=== PATIENT | female | born 1965 | race Caucasian/White ===

== ENCOUNTER → 2020-06-27 13:30 | Outpatient (CLI) | payer BC, SELFPAY ==
--- NOTE | ~2020-06-27 | MR_ITS ---
EXAMINATION: MR abdomen wo/w con, MR pelvis wo/w con DATE: 06/27/2020 15:00 INDICATION: Intra-abdominal and pelvic swelling, mass and lump. Uterine mass. TECHNIQUE: 1. Magnetic resonance imaging (MRI) of the abdomen was performed without and with 15 mL Multihance in travenous contrast. Sequences included coronal T2-weighted SS-FSE, coronal and axial FS 2D-FIESTA, a xial STIR FSE, axial T2-weighted SS-FSE, axial T2-weighted FS SS-FSE, axial diffusion-weighted SE, ax ial dual-echo T1-weighted FSPGR, and axial and coronal T1-weighted LAVA. Postcontrast axial and coron al T1-weighted LAVA images were obtained. 2. MRI of the pelvis was performed without and with the same 15 mL Multihance intravenous contrast oneil nena. Fullfield sequences of the pelvis included axial and coronal T2-weighted SS FSE, coronal 2D FIES TA, axial T1-weighted FSPGR, axial dual-echo T1-weighted FSPGR and axial T1 weighted LAVA. Small fie ld of view sequences included axial, sagittal and coronal T2-weighted FSE centered on the uterus and adnexa. Postcontrast sequences included a time course axial T1-weighted LAVA with fullfield of view of the pelvis. COMPARISON: None. FINDINGS: Abdomen: Heart size is normal. No pericardial or pleural effusion. A couple subcentimeter T2 hyperintense hepa tic cysts. Gallbladder, spleen, pancreas, left kidney and bilateral adrenal glands are normal. Mild r ight hydroureteronephrosis which extends to where the mid ureter appears compressed between the right psoas muscle and a large uterine mass which will be further detailed below. No bowel obstruction. Mi ld sigmoid diverticulosis without adjacent inflammatory changes to suggest diverticulitis. Normal aurelio endix. No pathologically enlarged abdominal lymphadenopathy. Normal bone marrow signal throughout. Pelvis: 16.7 x 8.8 x 13.8 cm subserosal mass arising from the uterine fundus consistent with a uterine fibroi d. Distended bladder is normal. Small amount of likely physiologic free fluid in the pelvis. A few love bcentimeter cysts/follicles at the bilateral ovaries the left ovary positioned along the anterior to anteroinferior margin of the uterine mass in the right ovary position posterior to the uterine body. Minimal likely physiologic free fluid in the pelvis. No pathologically enlarged pelvic or inguinal ly mphadenopathy. 5 mm retrolisthesis L5 on S1 with severe disc height loss at this level. IMPRESSION: 1. 16.7 x 8.8 x 13.8 cm subserosal mass at the uterine fundus most likely representing a large uterin e fibroid. 2. Mild right hydroureteronephrosis which appears to result from compression of the mid right ureter between the mass and the right psoas muscle. 3. Mild sigmoid diverticulosis. Reviewed, dictated and finalized at location A. IMPRESSION: 1. 16.7 x 8.8 x 13.8 cm subserosal mass at the uterine fundus most likely repre senting a large uterine fibroid. 2. Mild right hydroureteronephrosis which appears to result from compression of the mid right ureter between the mass and the right psoas muscle. 3. Mild sigmoid diverticulosis.
[2020-06-27 14:01] LABS: Estimated Glomerular Filt Rate > 60
== END ==
PROVIDERS: Visit Provider Obstetrics & Gynecology Gynecologic Oncology
DX: R19.00 Intra-abdominal and pelvic swelling, mass and lump, unspecified site (principal); D25.9 Leiomyoma of uterus, unspecified; K57.30 Diverticulosis of large intestine without perforation or abscess without bleeding
CPT/HCPCS: 72197; 74183; A9577

== ENCOUNTER 2022-08-31 19:48 | Emergency (ER) | payer OTHER, SELFPAY ==
--- NOTE | 2022-08-31 19:50 | ED.GENADULT ---
HPI - General Adult General Chief complaint: Eye Problems Stated complaint: lt eye irritation Time Seen by Provider: 08/31/22 19:50 Source: patient Mode of arrival: ambulatory Limitations: no limitations History of Present Illness HPI narrative: 57-year-old female presents with complaint of pain, burning, photophobia, clear drainage from left eye starting this afternoon. Patient reports that she did a tele doc visit and they said all call something in for you. Patient states she called pharmacy to see what was called in and was told that it was an allergy eye drop. Patient is concerned that she has an eye infection and needs an antibiotic eye drop. Patient does wear contacts. Uses daily contacts but worse for 3 days. States that she sleeps in her contacts. Denies eye injury. All systems reviewed and negative except as noted above. Related Data Allergies Allergy/AdvReac Type Severity Reaction Status Date / Time No Known Allergies Allergy Verified 08/31/22 19:59 Review of Systems Review of Systems: CONSTITUTIONAL: Denies fever, chills, or sweats. EYES: Denies visual changes . Reports left eye redness, photophobia, clear drainage. ENT: Denies rhinorrhea, congestion, sore throat, or otalgia. CARDIOVASCULAR: Denies chest pain, palpitations, or edema. RESPIRATORY: Denies cough or dyspnea. GASTROINTESTINAL: Denies abdominal pain, nausea, vomiting, or diarrhea. GENITOURINARY: Denies dysuria or hematuria. SKIN: Denies rash or itching. MUSCULOSKELETAL: Denies back pain, joint pain, or myalgia. NEUROLOGIC: Denies headache, numbness, or weakness. PSYCHIATRIC: Denies anxiety or depression. All other systems reviewed are negative, except as documented in HPI. PMFSH Comments At time of signature, agree with nursing past medical, surgical, social and family history. There is no relevant family history pertinent to the presenting complaint. Exam Narrative: GENERAL: This is a well-nourished, well-developed patient, in no apparent distress. HEAD: normocephalic, atraumatic. EYES: PERRL. Sclera of left eye is erythematous. Topical anesthetic was instilled with good anesthesia using 1gtt of opth anesthetic agent (tetracaine). Fluorescein stain of the L eye was performed. three small corneal abrasions noted. NO FB. Upper lid was everted and no FB or lesions were noted. Normal saline irrigation eye solution was performed and the patient tolerated the procedure well, no adverse reaction or complications. EARS: External ears normal NOSE: External nose normal NECK: Neck supple, non-tender without lymphadenopathy, masses or thyromegaly. CARDIOVASCULAR: Regular rate and rhythm without murmurs, gallops, or rubs. RESPIRATORY: Clear to auscultation. Breath sounds equal bilaterally. No wheezes, rales, or rhonchi. SKIN: warm, Dry, intact with no suspicious lesions or rash, good texture and turgor. NEURO: awake, alert, and oriented to person, place and time. There were no obvious focal neurologic abnormalities. EXTREMITIES: No joint tenderness, effusion, or edema noted. Course Course Level of Care: Express Care Visit Vital Signs Vital signs: Vital Signs Temperature 36.3 C L 08/31/22 20:01 Pulse Rate 75 08/31/22 20:01 Respiratory Rate 16 08/31/22 20:01 Blood Pressure 149/84 H 08/31/22 20:01 Pulse Oximetry 100 08/31/22 20:01 Oxygen Delivery Room Air 08/31/22 20:01 Temperature 36.3 C L 08/31/22 20:01 Pulse Rate 75 08/31/22 20:01 Respiratory Rate 16 08/31/22 20:01 Blood Pressure 149/84 H 08/31/22 20:01 Pulse Oximetry 100 08/31/22 20:01 Oxygen Delivery Room Air 08/31/22 20:01 Reviewed Medical Decision Making MDM Narrative Medical decision making narrative: Patient is aware of diagnosis, understands and agrees to treatment plan. Anticipatory guidance given. Patient agrees to follow-up as directed and is aware of reasons to seek care at the emergency department. Portions of
[2022-08-31 20:01] VITALS: BP 149/84; PULSE 75; RESP 16; TEMP 36.3; O2SAT 100
== END 2022-08-31 20:13 | disposition home or self-care (01) ==
PROVIDERS: Emergency Provider Nurse Practitioner Family
DX: S05.02XA Injury of conjunctiva and corneal abrasion without foreign body, left eye, initial encounter (principal); T14.90XA Injury, unspecified, initial encounter
CPT/HCPCS: 99213; A9270; G0463

== ENCOUNTER 2023-06-06 15:59 | Outpatient (CLI) | payer OTHER, SELFPAY ==
--- NOTE | ~2023-06-06 | MR_ITS ---
EXAMINATION: MR knee RT wo con DATE: 06/06/2023 16:26 INDICATION: Right knee pain TECHNIQUE: Magnetic resonance imaging (MRI) of the right knee was performed without intravenous contr ast. Sequences included coronal PD-weighted FSE, coronal PD-weighted FS FSE, sagittal T2-weighted FS E, sagittal PD-weighted FS FSE and axial PD weighted fat saturated FSE. COMPARISON: None. FINDINGS: Medial compartment: Partial-thickness radial tear extending across the inferior aspect of the lateral side of the posteri or horn of the medial meniscus there is mild medial extrusion of the meniscal body. Partial-thickness chondral ulceration and smaller regions of deep chondral fissuring at the anterior weightbearing med ial femoral condyle. Cartilage along the medial tibial plateau is relatively preserved. Lateral compartment: Lateral meniscus is normal. There is mild shallow chondral surface irregularity along the anterior we ightbearing lateral femoral condyle. Small deep chondral ulceration with underlying mild cortical irr egularity and edema-like signal change at the central weightbearing lateral femoral condyle. Small r egion of shallow chondral ulceration along the posterior medial margin of the lateral tibial plateau. Patellofemoral compartment: Extensive full/near full-thickness chondral ulceration along the clavicle two thirds of the lateral p atellar facet. Less severe partial thickness cartilage loss in places however approaching full/near f ull-thickness at the patellar apical ridge and medial facet. There are tiny foci of underlying subart icular edema-like signal change at both the patellar apical ridge and lateral facet. Additional exten sive partial thickness cartilage loss at the trochlea with regions of full/near full-thickness chondr al ulceration with underlying edema-like signal change at the cephalad aspect of the lateral trochlea . Smaller region of deep chondral ulceration centrally at the trochlear groove and medial trochlea. Ligaments and tendons: Anterior and posterior cruciate ligaments are normal. The medial collateral ligament and fibular yefri ateral ligament complex are normal. Mild distal quadriceps and proximal patellar tendinopathy without tear. The visualized medial and lateral hamstring tendons as well as the iliotibial band are normal. Fluid: Small right knee joint effusion. There are multiple small loose osteochondral bodies in the posterior recess along the popliteus muscle and tendon and posterior to the distal posterior cruciate ligament . Osseous/other: Bone alignment is normal. No fracture or pathologic marrow replacing process. Moderate-sized marginal osteophytes in all 3 compartments of the knee. IMPRESSION: 1. Partial-thickness radial tear near the posterior root of the medial meniscus. 2. Tricompartmental osteoarthritis, moderate severity with extensive high-grade chondromalacia in the patellofemoral compartment and mild with moderate grade chondromalacia in the medial compartment and mild with moderate grade and small region of high-grade chondromalacia in the lateral compartment. 3. Small right knee joint effusion with a few loose osteochondral bodies at the posterior recesses of the knee. Reviewed, dictated and finalized at location A. IMPRESSION: 1. Partial-thickness radial tear near the posterior root of the medial meniscus . 2. Tricompartmental osteoarthritis, moderate severity with extensive high-grade chondromalacia in the patellofemoral compartment and mild with moderate grade chondromalacia in the medial compartment and mild with moderate grade and small region of high-grade chondromalacia in the lateral compartment. 3. Small right knee joint effusion with a few loose osteochondral bodies at the posterior recesses of the knee.
--- NOTE | ~2023-06-06 | XR_ITS ---
[id number] 06/06/2023 16:35 Indication: Right knee pain Procedure: 2 views right knee Comparison: No prior studies for comparison. Findings: There is moderate tricompartment osteoarthritis of the right knee. No fracture, subluxation or dislocation. No significant joint effusion. Impression: 1: Moderate tricompartment osteoarthritis. Reviewed, dictated and finalized at location B. Impression: 1: Moderate tricompartment osteoarthritis.
== END 2023-06-06 16:00 ==
LOC: MICIMG 16:00
PROVIDERS: PCP Physician Assistant; Visit Provider Physician Assistant
DX: M17.0 Bilateral primary osteoarthritis of knee (principal); M25.461 Effusion, right knee
CPT/HCPCS: 73560; 73721